=== PATIENT | female | born 1950 | race Caucasian/White ===

== ENCOUNTER → 2017-10-24 | Outpatient (CLI) | payer MEDICARE, BC ==
[~2017-10-24] MED LIST: ATOR10 PO; BUDE32NIS; BUSP15; CETI10 PO; CYCL10 PO; Ecotrin325 MG PO; FEXPSEER; FLONASE; FLUO10; FLUO10 PO; FLUT110OIA INH; Flovent Diskus50 MCG IH; LISHYD1012 PO; MEDR5 PO; MUPI2TO; NAPR500 PO; OXYACE5T PO; PIRO20; PROP10 PO; PROP60 PO; RISE30 PO; TRAM50 PO
== END ==
LOC: LAB 15:31 → LAB SHORT 15:31
DX: N39.0 Urinary tract infection, site not specified (principal)
CPT/HCPCS: 87086; 87106

== ENCOUNTER → 2019-11-03 | Outpatient (CLI) | payer MEDICARE ==
[2019-11-04 14:41] LABS: Stool Occult Bld Immuno 1 Negative (NEGATIVE)
== END | disposition home or self-care (01) ==
LOC: LAB 13:09 → LAB SHORT 13:09
PROVIDERS: Nurse Practitioner Family
DX: Z12.11 Encounter for screening for malignant neoplasm of colon (principal); E78.2 Mixed hyperlipidemia; E55.9 Vitamin D deficiency, unspecified
CPT/HCPCS: G0328

== ENCOUNTER → 2020-06-14 | Outpatient (CLI) | payer MEDICARE, OTHER ==
[~2020-06-14] MED LIST changes: +EXTRA PAIN REL1 EAC2 PO; +Oxybutynin Chlor5 M1 PO; +PRAVASTATIN SOD40 MG PO; +PROP160ER PO; +Prozac20 MG PO; +TRIA15CR3; +VOLTAREN ARTHRI20 GM
[2020-06-14 13:31] LABS: Source, Urine Clean Catch
[2020-06-14 15:11] LABS: Appearance, Urine Hazy (Clear); Bilirubin, Urine Neg (Neg); Blood, Urine 1+ (Neg); Color, Urine Yellow (P-Yellow); Glucose Qualitative, Urine Neg (Neg); Ketones, Urine Neg (Neg); Leukocyte Esterase, Urine 3+ (Neg); Nitrite, Urine Neg (Neg); Protein, Urine 2+ (Neg); Specific Gravity, Urine 1.015 (1.003-1.022); Urobilinogen, Urine NORM (Normal)
[2020-06-14 16:33] LABS: White Blood Cells, Urine 50-100 /hpf (0-5)
[2020-06-14 16:34] LABS: Bacteria Many /hpf; Squamous Epithelial Cells Few /hpf (Few)
== END | disposition home or self-care (01) ==
LOC: LAB 11:27
PROVIDERS: Family Medicine
DX: R30.9 Painful micturition, unspecified (principal)
CPT/HCPCS: 81001; 87086